=== PATIENT | female | born 1990 | race Hispanic/Latino ===

== ENCOUNTER 2022-08-20 19:31 | Emergency (ER) | payer OTHER ==
[~2022-08-20] VITALS: Ht 162.6 cm; Wt 50.8 kg
[2022-08-20] MEDS ORDERED: CEFDINIR300 MG PO (20:44)
[2022-08-20 20:50] VITALS: BP 100/71
== END 2022-08-20 20:55 | disposition home or self-care (01) ==
LOC: FSED 19:43
DX: J02.9 Acute pharyngitis, unspecified (principal); H66.92 Otitis media, unspecified, left ear
CPT/HCPCS: 83518; 87400; 99282